=== PATIENT | female | born 1995 | race Caucasian/White ===

== ENCOUNTER 2021-08-22 09:42 | Emergency (ER) | payer BC, SELFPAY ==
--- NOTE | 2021-08-22 09:56 | PC.NURSE ---
this patient registered at the [facility] front press[facility], then spoke with male with her, then they both walked out of the building got into their black car and drove off property.
== END 2021-08-22 09:50 | disposition left against medical advice (07) ==
LOC: CHSED 09:46
PROVIDERS: Emergency Provider Internal Medicine Critical Care Medicine; PCP Nurse Practitioner Family
DX: Z53.21 Procedure and treatment not carried out due to patient leaving prior to being seen by health care provider (principal)
CPT/HCPCS: 99199